=== PATIENT | female | born 1965 | race Two or more races ===

== ENCOUNTER 2017-05-08 15:08 | Emergency (ER) | payer OTHER ==
[~2017-05-08] VITALS: Ht 160 cm; Wt 93.0 kg
[~2017-05-08 15:08] MED LIST: AZITHROMYCIN250 MG ORAL; CLARITIN10 M2 ORAL; PROMETHAZINE-C118 M1 ORAL
[2017-05-08 16:00] VITALS: BP 124/78
--- NOTE | 2017-05-08 16:21 | Diagnostic Imaging Report ---
Indication: Cough Comparison: 09/10/15 A single view chest radiograph was obtained. Findings: The lungs are clear. Cardiac mediastinal silhouette is normal. No pleural effusion seen. Bones are osteopenic. Impression: No acute disease
[2017-05-08] MEDS ORDERED: ZITHROMAX250 MG ORAL (16:24)
[2017-05-08] MEDS ORDERED: PROMETHAZI6.25 MG/1 ORAL (16:24)
[2017-05-08] MEDS ORDERED: IBUPROFEN600 MG ORAL (16:24)
[2017-05-08] MEDS ORDERED: PREDNISONE20 MG ORAL (16:24)
[2017-05-08 16:30] VITALS: BP 124/78
--- NOTE | 2017-05-08 19:38 | Emergency Room Report ---
History of Present Illness General Chief Complaint: Upper Respiratory Illness Source: Patient Present Illness HPI The patient is a 51-year-old female presenting for subjective fever, chills, sore throat, cough. She states that she was seen by her primary doctor approximately one month prior and diagnosed with a lower respiratory infection. She was given prescription for amoxicillin and prednisone. She states that this initially helped but symptoms returned. She states that pain is an 8/10 dull ache to the back of the throat and is worse with swallowing. She denies any known sick contacts or recent travel. She denies any other symptoms Allergies: Coded Allergies: PENICILLINS (Verified Allergy, Unknown, 09/20/15) Patient History Past Medical History: see triage record Pertinent Family History: none Last Menstrual Period: 03/13/17 Reviewed Nursing Documentation: PMH: Agreed, PSxH: Agreed Nursing Documentation-PMH Past Medical History: No Stated History Review of Systems All Other Systems: negative except mentioned in HPI Physical Exam Vital Signs Date Time Temp Pulse Resp B/P (MAP) Pulse Ox O2 Delivery O2 Flow Rate FiO2 05/08/17 15:17 98.4 67 14 120/82 98 Room Air Sp02 EP Interpretation: reviewed, normal General Appearance: no apparent distress, alert, GCS 15, non-toxic Head: normocephalic, atraumatic Eyes: bilateral eye normal inspection, bilateral eye PERRL ENT: hearing grossly normal, no angioedema, normal voice, uvula midline, tonsillar swelling, pharyngeal erythema Neck: full range of motion, supple/symm/no masses Respiratory: chest non-tender, lungs clear, normal breath sounds, no accessory muscle use, no wheezing, speaking full sentences Cardiovascular #1: regular rate, rhythm, no edema Gastrointestinal: normal bowel sounds, non tender, soft, non-distended, no guarding, no rebound Neurologic: alert, oriented x3, responsive, motor strength/tone normal, sensory intact, speech normal Psychiatric: judgement/insight normal, memory normal, mood/affect normal, no suicidal/homicidal ideation Skin: normal color, no rash, warm/dry, well hydrated Medical Decision Making PA Attestation Dr. White is my supervising physician. Patient management was discussed with my supervising physician Diagnostic Impression: Primary Impression: Pharyngitis, acute Qualified Codes: J02.9 - Acute pharyngitis, unspecified ER Course The patient is a 51-year-old female presenting for subjective fever, chills, sore throat, cough Differential diagnosis include but not limited to pharyngitis, sinusitis, AOM, bronchitis, PNA Physical exam: Vitals within normal limits. Afebrile. No apparent distress HEENT exam: There is bilateral tonsillar edema, erythema. Uvula midline. Moist mucous membranes. There is no cervical lymphadenopathy. Lungs are clear to auscultation bilaterally Skin is warm and dry. No rash The patient will be discharged home with a prescription for azithromycin, prednisone, and cough medication and is given ER precautions. Patient will followup with primary care Chest X-Ray Diagnostic Results Chest X-Ray Diagnostic Results : Chest X-Ray Ordered: Yes # of Views/Limited/Complete: 1 View Indication: Other - cough EP Interpretation: Yes Interpretation: no consolidation, no effusion, no pneumothorax, no acute cardiopulmonary disease Impression: No acute disease Electronically Signed by: JAZMINE Person Scribe Text My and My supervising physician's interpretation of the chest xrays are there is no consolidation, no effusion, no acute cardiopulmonary disease, no pneumothorax Last Vital Signs Date Time Temp Pulse Resp B/P (MAP) Pulse Ox O2 Delivery O2 Flow Rate FiO2 05/08/17 16:30 98.5 66 16 124/78 98 Room Air Status: improved Disposition: HOME, SELF-CARE Condition: Improved Scripts Promethazine Hcl (PROMETHAZINE HCL*) 6.25 Mg/5 Ml Syrup 5 ML ORAL Q6H, #120 ML 0 Refills Prov: TERZIANGONZÁLEZ P.A. 05/08/17 Prednisone* (PREDNISONE*) 20 Mg Tablet 20 MG ORAL DAILY, #5 TAB 0 Refills Prov: TERZIAN,GONZÁLEZ P.A. 05/08/17 Azithromycin* (ZITHROMAX*) 250 Mg Tablet 250 MG ORAL DAILY, #6 TAB 0 Refills Take two tables once daily for 1 day, then one tablet once daily for 4 days. Prov: TERZIAN,GONZÁLEZ P.A. 05/08/17 Ibuprofen* (MOTRIN*) 600 Mg Tablet 600 MG ORAL Q8H Y for For Pain, #30 TAB 0 Refills Prov: TERZIAN,GONZÁLEZ P.A. 05/08/17 Patient Instructions: Upper Respiratory Infection, Adult Additional Instructions: I discussed my findings with the patient. All questions and concerns have been answered. Treatment and medication compliance have been addressed. I advised the patient that they need to follow up with PMD in 3-5 days. Return to ED if pain remains or worsens, cough worsens or remains, you notice blood in your sputum, you notice wheezing, you experience a fever, or if needed for any reason. Patient verbalized understanding of discharge instructions. GONZÁLEZ CROCKER May 08, 2017 19:38
== END 2017-05-08 16:30 | disposition home or self-care (01) ==
LOC: EMR 16:10
DX: J02.9 Acute pharyngitis, unspecified (principal); Z88.0 Allergy status to penicillin
CPT/HCPCS: 71010; 99284